=== PATIENT | male | born 1965 | race Caucasian/White ===

== ENCOUNTER 2018-08-25 11:06 | Emergency (ER) | payer BC ==
--- NOTE | 2018-08-25 11:24 | ED ---
Lower Extremity - HPI Summary HPI Summary: Patient is a 52 y/o M w/ c/o right great toe numbness for the past ten to fourteen days. Pain is denied, he reports no injury. Numbness is noted to be located at the area around the phalange, no numbness elsewhere. No discoloration noted, back pain, excessive hunger/thirst is denied. Patient came in today as he is concerned with regards to the persistence of the Sx. Patient does report right calf pain, notes this is possibly from recent calf exercises. He is visiting [place], patient notes recent travel by airplane. No PMHx noted. FMHx of type 1 diabetes on mother's side is reported, denies FMHx of MS. Fever, chills, erythema at eyes, sore throat, chest pain, SOB, cough, abdominal pain, N/V, dysuria, hematuria, myalgia, edema, rash and dizziness are not reported. On triage, pain is rated 0/10, nothing is noted to aggravate/ alleviate Sx. Home medications and allergies are reviewed. - History of Current Complaint Chief Complaint: EDExtremityLower Stated Complaint: RIGHT BIG TOE WENT NUMB Hx Obtained From: Patient Mechanism Of Injury: Other - NO INJURY REPORTED Onset of Pain: Days - SX ONSET TEN DAYS, NO PAIN Onset/Duration: Days - TEN DAYS Severity Currently: None Pain Intensity: 0 Pain Scale Used: 0-10 Numeric - 0/10 Timing: Constant, Lasting Days - TEN DAYS Location: Is Discrete @ - RIGHT GREAT TOE Associated Signs And Symptoms: Positive: Other - NUMBNESS Aggravating Factor(s): Nothing Alleviating Factor(s): Nothing - Allergies/Home Medications Allergies/Adverse Reactions: Allergies Allergy/AdvReac Type Severity Reaction Status Date / Time No Known Allergies Allergy Verified 08/25/18 11:12 PMH/Surg Hx/FS Hx/Imm Hx Sensory History: Denies: Hx Legally Blind, Hx Deafness Opthamlomology History: Denies: Hx Legally Blind EENT History: Denies: Hx Deafness - Surgical History Surgery Procedure, Year, and Place: tonsilectomy, appendectomy, adenoidectomy Infectious Disease History: No Infectious Disease History: Denies: Traveled Outside the [place] in Last 30 Days - Family History Known Family History: Positive: Diabetes - MOTHER'S SIDE , Other - NO FHMX OF MS - Social History Alcohol Use: None Substance Use Type: Reports: None Smoking Status (MU): Never Smoked Tobacco Review of Systems Positive: Other - NEGATIVE - EXCESSIVE THIRST/HUNGER. Negative: Fever, Chills, Skin Diaphoresis Negative: Erythema Negative: Sore Throat Negative: Chest Pain Negative: Shortness Of Breath, Cough Negative: Abdominal Pain, Vomiting, Nausea Negative: dysuria, hematuria Positive: Other - NEGATIVE - BACK PAIN; POSITIVE - RIGHT CALF PAIN. Negative: Myalgia, Edema Positive: Other - NEGATIVE - DISCOLORATION . Negative: Rash Neurological: Other - NEGATIVE - DIZZINESS Positive: Numbness - RIGHT GREAT TOE All Other Systems Reviewed And Are Negative: Yes Physical Exam - Summary Physical Exam Summary: Constitutional: Well-developed, Well-nourished, Alert. (-) Distressed Skin: Warm, Dry HENT: Normocephalic; Atraumatic Eyes: Conjunctiva normal Neck: Musculoskeletal ROM normal neck. (-) JVD, (-) Stridor, (-) Tracheal deviation Cardio: Rhythm regular, rate normal, Heart sounds normal; Intact distal pulses; The pedal pulses are 2+ and symmetric. Radial pulses are 2+ and symmetric. (-) Murmur Pulmonary/Chest wall: Effort normal. (-) Respiratory distress, (-) Wheezes, (-) Rales Abd: Soft. (-) Tenderness, (-) Distension, (-) Guarding, (-) Rebound Musculoskeletal: (-) Edema Lymph: (-) Cervical adenopathy Neuro: Alert, Oriented x3, Strength normal, Cranial nerves II-XII are grossly intact. (-) Dysmetria, (-) Nystagmus, (-) Ataxia by finger to nose testing, (+) diminished sensation in great toe on right side; GCS 15 Psych: Mood and affect Normal Triage Information Reviewed: Yes Vital Signs On Initial Exam: Initial Vitals Temp Pulse Resp BP Pulse Ox 97.8 F 83 19 138/79 96 08/25/18 11:09 08/25/18 11:09 08/25/18 11:09 08/25/18 11:09 08/25/18 11:09 Vital Signs Reviewed: Yes Diagnostics - Vital Signs Vital Signs Temp Pulse Resp BP Pulse Ox 08/25/18 11:09 97.8 F 83 19 138/79 96 - Laboratory Result Diagrams: 08/25/18 11:39 08/25/18 11:39 Lab Statement: Any lab studies that have been ordered have been reviewed, and results considered in the medical decision making process. - CT BRAIN CT CT Interpretation Completed By: Radiologist Summary of CT Findings: BRAIN CT IMPRESSION: #. Negative unenhanced head CT. - Ultrasound No standard instances Ultrasound Interpretation Completed By: Radiologist Summary of Ultrasound Findings: VENOUS DOPPLER STUDY IMPRESSION: NO RIGHT LOWER EXTREMITY DEEP VEIN THROMBOSIS. THIS REPORT WAS REVIEWED BY ED PHYSICIAN. Re-Evaluation - Re-Evaluation First Eval Re-Evaluation Time: 12:45 Comment: Patient could benefit from neurologist follow up and nerve conduction study. This was discussed with patient, who is agreeable. Lower Extremity Course/Dx - Course Course Of Treatment: Patient is a 52 y/o M w/ c/o right great toe numbness for the past ten to fourteen days. Pain is denied, he reports no injury. Numbness is noted to be located at the area around the phalange, no numbness elsewhere. No discoloration noted, back pain, excessive hunger/thirst is denied. Patient does report right calf pain, notes this is possibly from recent calf exercises. He is visiting [place], patient notes recent travel by airplane. No PMHx noted. FMHx of type 1 diabetes on mother's side is reported, denies FMHx of MS. On physical exam, diminished sensation in great toe on right side is noted. GCS 15. BRAIN CT IMPRESSION: #. Negative unenhanced head CT. VENOUS DOPPLER STUDY IMPRESSION: NO RIGHT LOWER EXTREMITY DEEP VEIN THROMBOSIS. Labs showed vitamin B12 455, hemoglobin A1c 5.0, glucose 110, BUN/creatinine 23.2, chloride 100, potassium 4.1, sodium 134, MPV 6.1, MCH 32. No DVT, no significant electrolyte abnormality. Patient could benefit from neurologist follow up and nerve conduction study. This was discussed with patient, who is agreeable. Dx of paresthesia. - Diagnoses Provider Diagnoses: Paresthesia Discharge - Sign-Out/Discharge Documenting (check all that apply): Patient Departure - discharge - Discharge Plan Condition: Stable Disposition: HOME Patient Education Materials: Paresthesia (ED) Referrals: Soumya Davidson MD [Medical Doctor] - 7 Days Care [facility] [Outside] - 7 Days Additional Instructions: RETURN TO EMERGENCY DEPARTMENT FOR ANY NEW OR WORSENING SYMPTOMS. FOLLOW UP DR. DAVIDSON IN 5-7 DAYS. - Billing Disposition and Condition Condition: STABLE Disposition: Home - Attestation Statements Document Initiated by Frank: Yes Documenting Scribe: ZULEIKA RODRIGUES Provider For Whom Frank is Documenting (Include Credential): MUKUND BARROSO MD Scribe Attestation: ZULEIKA Meade , scribed for MUKUND BARROSO MD on 08/28/18 at 2002. Scribe Documentation Reviewed: Yes Provider Attestation: The documentation as recorded by the ZULEIKA lopes accurately reflects the service I personally performed and the decisions made by me, MUKUND BARROSO MD
[2018-08-25 11:53] LABS: Hematocrit 43 % (42-52); Hemoglobin 15.1 g/dl (14.0-18.0); Mean Corpuscular HGB Conc 35 g/dl (31-36); Mean Corpuscular Hemoglobin 32 pg (27-31); Mean Corpuscular Volume 89 fL (80-94); Mean Platelet Volume 6.1 fL (7.4-10.4); Platelet Count 261 10^3/ul (150-450); Red Cell Distribution Width 13 % (10.5-15); White Blood Count 5.5 10^3/ul (3.5-10.8)
[2018-08-25 12:10] LABS: EGFR Non-African American 79.1 (>60)
[2018-08-25 13:03] VITALS: BP 119/76
== END 2018-08-25 13:02 | disposition home or self-care (01) ==
LOC: ED 11:06
DX: R20.2 Paresthesia of skin (principal); M79.661 Pain in right lower leg
CPT/HCPCS: 36415; 70450; 80053; 82607; 83036; 84425; 85027; 99282